=== PATIENT | female | born 1955 | race Two or more races ===

== ENCOUNTER 2017-01-26 09:02 | Day surgery (SDC) | payer OTHER ==
[~2017-01-26] VITALS: Ht 152.4 cm; Wt 73.3 kg
[2017-01-26] VITALS (10 sets, daily range): BP systolic 89–124; BP diastolic 43–95; PULSE 69–78; RESP 16–21; Ht 152.4 cm; Wt 73.3 kg
[~2017-01-26 09:02] MED LIST: ASPI81TA3 PO; ATOR20TA65 PO; CHOL200073 PO; FAMO20TA18 PO; LORA10TA3 PO; LOSA1TAB19 PO; METF500T9 PO; OMEP20CA16 PO; VERA240T94 PO
[2017-01-26] MEDS ORDERED: CHOL500010 PO (09:31)
[2017-01-26] MEDS ORDERED: ALBU18HF INHALATION (09:32)
[2017-01-26] MEDS ORDERED: FLUT16SP17 NASAL (09:32)
[2017-01-26] MEDS ORDERED: DOCU-159 PO (09:32)
[2017-01-26 09:57] LABS: BASOPHIL # 0.1 10^3/ul (0.0-0.1); BASOPHILS % 0.5 % (0.0-2.0); EOSINOPHILS # 0.3 10^3/ul (0.0-0.5); EOSINOPHILS % 3.5 % (0.0-7.0); HEMOGLOBIN 12.8 g/dl (12.0-16.0); LYMPHOCYTES # 2.9 10^3/ul (0.8-2.9); LYMPHOCYTES % 31.4 % (15.0-51.0); MEAN CORPUSCULAR HEMOGLOBIN 28.4 pg (29.0-33.0); MEAN CORPUSCULAR VOLUME 88.7 fl (82.0-101.0); MEAN PLATELET VOLUME 10.6 fl (7.4-10.4); MONOCYTE # 0.5 10^3/ul (0.3-0.9); MONOCYTES % 5.3 % (0.0-11.0); NEUTROPHIL # 5.5 10^3/ul (1.6-7.5); PLATELET COUNT 271 10^3/UL (140-415); RED BLOOD COUNT 4.51 10^6/ul (4.20-5.40); RED CELL DISTRIBUTION WIDTH 13.3 % (11.5-14.5); WHITE BLOOD COUNT 9.4 10^3/ul (4.8-10.8)
[2017-01-26] MEDS ORDERED: FENTAnyl 50 MCG/ML VIAL ONE (12:37)
[2017-01-26] MEDS ORDERED: MIDAZOLAM 1 MG/ML 2 ML INJ ONE (12:37)
--- NOTE | 2017-01-26 13:18 | PREOPHP ---
DATE OF ADMISSION: 01/26/2017 HISTORY OF PRESENT ILLNESS: A 61-year-old female 5, para 4, AB 1 who is admitted with histo ry of postmenopausal bleeding. PAST MEDICAL HISTORY: Hypertension, diabetes, asthma and heart disease. PAST SURGICAL HISTORY: Angioplasty. ALLERGIES: NO KNOWN ALLERGIES. FAMILY HISTORY: Hypertension and heart disease. PHYSICAL EXAMINATION: VITAL SIGNS: The patient is afebrile. Vital signs stable. HEAD, NECK AND CHEST: Within normal limits. ABDOMEN: Soft, nontender, nondistended. PELVIC: Normal. EXTREMITIES: Within normal limits. NEUROLOGIC: Within normal limits. IMPRESSION: Postmenopausal bleeding. PLAN: Dilation and curettage. Risks, benefits and alternatives of the procedure were discussed wit h the patient. The patient said she understood and gave informed consent for the procedure. Dictated By: BRUCE MA/TONY Conf#: [id number] DID#: [id number]
--- NOTE | 2017-01-26 13:28 | SIPON ---
Date/Time of Note Date/Time of Note DATE: 01/26/17 TIME: 13:26 Operative Report Preoperative Diagnosis postmenopausal bleeding Postoperative Diagnosis same Operation/Procedure Performed Dilation and Curettage Surgeon Bruce Li MD museum assistant None Anesthesia: general Estimated blood loss: minimal Transfusion Required none Specimen ECC and EMC Grafts/Implants none Complications none BRUCE LI MD Jan 26, 2017 13:28
[2017-01-26] MEDS ORDERED: ONDANSETRON 4 MG INJ IV PRN (13:30)
[2017-01-26] MEDS ORDERED: HYDROmorphONE (0.2 MG/ML) 10ML SYG IV PRN ×2 (13:30)
[2017-01-26] MEDS ORDERED: FENTAnyl 50 MCG/ML VIAL IV PRN (13:30)
[2017-01-26] MEDS ORDERED: DIPHENHYDRAMINE 50 MG INJ IV PRN (13:30)
[2017-01-26] MEDS ORDERED: hydrALAzine 20 MG INJ IV PRN (13:30)
[2017-01-26] MEDS ORDERED: LABETALOL HCL 20MG INJ IV PRN (13:30)
[2017-01-26] MEDS ORDERED: MEPERIDINE 25 MG INJ IV PRN (13:30)
[2017-01-26] MEDS ORDERED: ONDANSETRON 4 MG INJ ONE (13:32)
[2017-01-26] MEDS ORDERED: LIDOCAINE 2% (SDV) 5 ML INJ ONE (13:32)
[2017-01-26] MEDS ORDERED: CEFAZOLIN 1 GM INJ ONE ×2 (13:32)
[2017-01-26] MEDS ORDERED: PROPOFOL 20 ML ONE (13:32)
--- NOTE | 2017-01-26 14:01 | OPR ---
DATE OF OPERATION: 01/26/2017 PREOPERATIVE DIAGNOSIS: Postmenopausal bleeding. POSTOPERATIVE DIAGNOSIS: Postmenopausal bleeding. OPERATION PERFORMED: Dilation and curettage. SURGEON: Bruce Gonzalez MD ANESTHESIA: General. ANESTHESIOLOGIST: MD Santy PROCEDURE: The patient was taken to operating room and placed on the operating table in supine posi tion. After adequate general anesthesia was given, the patient was placed in dorsal lithotomy posit ion. The area was prepared and draped in the usual sterile fashion. Speculum was placed inside the vagina and tenaculum was used to grasp the anterior lip of the cervix. Using Kevorkian curet, endo cervical curettage was performed and specimen obtained was sent to Pathology. Next, using cervical dilators, the cervical os was dilated. Using sharp curet, endometrial curettage was performed and s pecimen obtained was sent to Pathology. All the instruments were removed. Adequate hemostasis was assured. Patient tolerated procedure well. Patient was awakened from anesthesia and transferred to recovery in stable condition. ESTIMATED BLOOD LOSS: Minimal. COUNTS: All counts were correct. Dictated By: BRUCE MA/NTS Conf#: [id number] DID#: [id number]
--- NOTE | 2017-01-26 21:50 | RADRPT ---
Vent Rate: 77 bpm RR Interval: 0 msec OH Interval: 152 msec QRS Duration: 88 msec QT Interval: 412 msec QTC Interval: 466 msec P-R-T Page: 51 - -5 - 59 degrees Normal sinus rhythm Minimal voltage criteria for LVH, may be normal variant Nonspecific T wave abnormality Prolonged QT Abnormal ECG Electronically Signed By: Valeriy Baker [id number]
== END 2017-01-26 15:45 | disposition home or self-care (01) ==
LOC: SDS 09:02 → SUR 09:02
PROVIDERS: ATTEND Obstetrics & Gynecology
DX: N95.0 Postmenopausal bleeding (principal); E11.9 Type 2 diabetes mellitus without complications; I10 Essential (primary) hypertension; E66.9 Obesity, unspecified; Z68.31 Body mass index [BMI] 31.0-31.9, adult
CPT/HCPCS: 58120; 82962; 85025; 86850; 86900; 86901; 88305; 93005; J0690; J2250; J2405; J3010; Z7512; Z7610

== ENCOUNTER 2017-03-15 14:18 | Observation (INO) | END 2017-03-16 19:20 | disposition home or self-care (01) ==

== ENCOUNTER 2017-05-11 13:45 | Day surgery (SDC) | END 2017-05-11 18:59 | disposition home or self-care (01) ==

== ENCOUNTER 2018-02-05 09:36 | Observation (INO) | END 2018-02-06 13:05 | disposition home or self-care (01) ==

== ENCOUNTER 2018-03-14 23:02 | Emergency (ER) | payer OTHER ==
[~2018-03-14] VITALS: Wt 78.7 kg
[~2018-03-14 23:02] MED LIST changes: +ALBU18HF INHALATION; +ASPI-817 PO; -ASPI81TA3 PO; +ATOR20TA38 PO; -ATOR20TA65 PO; -CHOL200073 PO; +CHOL500010 PO; -FAMO20TA18 PO; +FLUT12HF4 IH; +GLIP-160 PO; +LORA-186 PO; -LORA10TA3 PO; -LOSA1TAB19 PO; +LOSA1TAB22 PO; +METF500T3 PO; -METF500T9 PO; +VERA240C2 PO; -VERA240T94 PO
[2018-03-14 23:04] VITALS: BP 121/59
[2018-03-14] MEDS ORDERED: predniSONE 20 MG TAB PO STA (23:24)
[2018-03-14] MEDS ORDERED: LEVALBUTEROL (NEB) 1.25 MG/0.5 ML AMP INH STA (23:24)
[2018-03-14] MEDS ORDERED: IPRATROPIUM (NEB) 0.5 MG/2.5 ML AMP NEB STA (23:24)
[2018-03-15] MEDS ORDERED: ALBU2.5V3 NEB (01:04)
[2018-03-15] MEDS ORDERED: PRED20TA PO (01:04)
[2018-03-15 01:36] VITALS: PULSE 90; RESP 22
--- NOTE | 2018-03-15 06:03 | ERD ---
ER Documentation Chief Complaint Chief Complaint ASTHMA EXACERBATION X'S 1 DAY, NOT RELIEVED BY INHALER HPI 62-year-old female presents for increasing shortness of breath. She does have history of asthma. Daughter states that the symptoms have been worsening for 1 week. However the past 2 days have been the worst. Patient has been coughing. Denies fevers or chills. No chest pain noted. Patient denies any cardiac history. She had an angiogram about a year ago which was negative. She does get regular follow-up with a final installer inspector and was never told that she has a cardiac problem. She takes Advair, Ventolin, montelukast at home however has not been helping. Denies leg pain. ROS All systems reviewed and are negative except as per history of present illness. Medications Home Meds Active Scripts Prednisone* (Prednisone*) 20 Mg Tab, 40 MG PO DAILY for asthma exacerbation for 5 Days, #10 TAB Prov:ROYAVEL HUDDLESTON 03/15/18 Albuterol Sulfate* (Albuterol Sulfate* Neb) 0.083%-3 Ml Neb, 2.5 MG NEB Q4 PRN for SHORTNESS OF BREATH, #30 EA Prov:AVEL ROY 03/15/18 Reported Medications Salmeterol Xinaf-Fluticasone* (Advair HFA*) 230/12 Aerosol Inhaler, 2 INH IH BID, #1 INHALER 02/05/18 Atorvastatin Calcium* (Atorvastatin Calcium*) 20 Mg Tablet, 20 MG PO QHS, #30 TAB 02/05/18 Aspirin* (Aspirin* EC) 81 Mg Tablet.dr, 81 MG PO DAILY, TAB 02/05/18 Omeprazole* (Omeprazole*) 20 Mg Capsule.dr, 20 MG PO AC BREAKFAST, #30 CAP 02/05/18 Glipizide XL* (Glipizide XL*) 5 Mg Tabsr, 10 MG PO DAILY, TAB 02/05/18 Losartan-Hydrochlorothiazide (Losartan-HCTZ) 50-12.5 Mg Tab, 1 TAB PO DAILY, TAB 02/05/18 Loratadine* (Claritin*) 10 Mg Tablet, 10 MG PO DAILY, TAB 02/05/18 Cholecalciferol (Vitamin D3) 5,000 Unit Tablet, 5000 UNIT PO DAILY, TAB 02/05/18 Verapamil Hcl* (Verapamil ER*) 240 Mg Cap24h.pel, 240 MG PO DAILY, CAP 02/05/18 Metformin* (Glucophage* XR) 500 Mg Tab.sr.24h, 500 MG PO DAILY, #30 TAB 02/05/18 Albuterol Sulfate* (Ventolin HFA*) 18 Gm Hfa.aer.ad, 2 PUFF INHALATION Q12 PRN for WHEEZING AND SOB, #1 INHALER 02/05/18 Allergies Allergies: Coded Allergies: No Known Allergies (Verified Allergy, Unknown, 02/05/18) PMhx/Soc History of Surgery: Yes (Nose surgery) Anesthesia Reaction: No Hx Neurological Disorder: No Hx Respiratory Disorders: Yes (Asthma) Hx Cardiac Disorders: Yes (HTN, High Cholesterol) Hx Psychiatric Problems: No Hx Miscellaneous Medical Probl: Yes (asthma, hypertension, high cholesterol, diabetes) Hx Alcohol Use: No Hx Substance Use: No Hx Tobacco Use: Yes (Chews tobacco 2-3x/week. Only chew, not lit.) Smoking Status: Never smoker Physical Exam Vitals Vital Signs Date Temp Pulse Resp B/P (MAP) Pulse Ox O2 O2 Flow FiO2 Time Delivery Rate 03/15/18 98.8 90 22 95 Room Air 01:36 03/15/18 Simple 01:35 Mask 03/14/18 84 20 94 21 23:37 03/14/18 99.3 112 20 121/59 97 23:04 (79) Physical Exam Const: No acute distress Head: Atraumatic Eyes: Normal Conjunctiva ENT: Normal External Ears, Nose and Mouth. Neck: Full range of motion. No meningismus. Resp: diffuse wheezing noted. Cardio: Regular rate and rhythm, no murmurs Abd: Soft, non tender, non distended. Normal bowel sounds Skin: No petechiae or rashes Back: No midline or flank tenderness Ext: No cyanosis, or edema Neur: Awake and alert Psych: Normal Mood and Affect Results 24 hrs Current Medications Medications Dose Sig/Valarie Start Time Status Last (Trade) Ordered Route PRN Stop Time Admin Dose Reason Admin Ipratropium 0.5 mg ONCE STAT 03/14/18 DC 03/14/18 [place] NEB 23:24 23:37 (Atrovent 03/14/18 0.02% 23:26 (Neb)) Prednisone 60 mg ONCE STAT 03/14/18 DC 03/15/18 (Prednisone) PO 23:24 00:14 03/14/18 23:26 1.25 mg ONCE STAT 03/14/18 DC 03/14/18 Levalbuterol INH 23:24 23:37 (Xopenex 03/14/18 Neb) 23:26 Procedures/MDM Medical Decision Making: Differential diagnosis includes but not limited to upper respiratory infection, pneumonia, sepsis, asthma exacerbation. Patient appeared well on physical examination, nontoxic appearing. Lungs were clear to auscultation bilaterally. There is low suspicion for pneumonia, sepsis. Chest x-ray showed atelectasis. Patient likely has an upper respiratory infection, likely viral that cause her asthma exacerbation. Discussed symptomatic treatment with patient who agrees with plan. Patient was given a breathing treatment and steroids in the ER with relief of symptoms. Patient given prescription for nebulized albuterol and recommendation for a nebulizer. Patient also given a prescription for steroids. She is advised to use the Ventolin inhaler [id number] for the next 24-48 hours. Patient advised to follow up with PCP in 1-2 days. Patient advised to return to ED for new or worsening symptoms. Patient stable on discharge from the ED. Disclaimer: Inadvertent spelling and grammatical errors are likely due to EHR/dictation software use and do not reflect on the overall quality of patient care. Also, please note that the electronic time recorded on this note does not necessarily reflect the actual time of the patient encounter. Departure Diagnosis: Primary Impression: Asthma with acute exacerbation Condition: Fair Patient Instructions: Asthma Medications, Asthma, Acute (Adult) Referrals: [facility] (PCP) Additional Instructions: Call your primary care doctor TOMORROW for an appointment during the next 1-2 days.See the doctor sooner or return here if your condition worsens before your appointment time. AVEL ROY DO Mar 15, 2018 06:03
== END 2018-03-15 01:10 | disposition home or self-care (01) ==
LOC: FTE 23:02
DX: J45.901 Unspecified asthma with (acute) exacerbation (principal); I10 Essential (primary) hypertension; E11.9 Type 2 diabetes mellitus without complications; Z79.82 Long term (current) use of aspirin; Z79.84 Long term (current) use of oral hypoglycemic drugs; Z87.891 Personal history of nicotine dependence
CPT/HCPCS: 71046; 93005; 94664; J7512; Z7502; Z7610